=== PATIENT | female | born 1985 | race Caucasian/White ===

== ENCOUNTER → 2018-08-25 | Outpatient (CLI) | payer BC ==
--- NOTE | 2018-08-25 18:47 | REP ---
LEFT BREAST DIAGNOSTIC MAMMOGRAM WITH 3D TOMOSYNTHESIS AND LEFT BREAST ULTRASOUND: HISTORY: Lump 12 o'clock left breast. An area is marked on the skin with a triangular marker. MLO and CC views of the left breast were performed with 3D tomosynthesis. Additional spot compression views are performed at the region of the palpable abnormality. There are no prior studies for comparison. There is no family history of breast cancer. Tyrer-Cuzick lifetime risk of breast cancer is 10.6%. Mild to moderate scattered fibroglandular tissue is seen throughout the left breast. No suspicious mass or architectural distortion is seen. No clustered microcalcifications are seen. Real-time sonographic evaluation of the 12 o'clock region of the left breast is performed. No cystic or solid nodule is seen. IMPRESSION: ACR 1 negative mammogram and ultrasound left breast. No mass or clustered microcalcifications are seen in the left breast. There is no mammographic or sonographic evidence of a mass at the site of the reported palpable abnormality in the region of 12 o'clock. A negative mammogram and ultrasound should not deter biopsy if there is a clinically suspicious palpable mass present. Clinical correlation and followup is recommended. BIRADS 1: BI-RADS/ACR category 1 mammogram. Negative Mammogram. This mammogram was interpreted with the aid of an FDA-approved computer-aided detection system. The patient states she had a clinical breast exam in 07/2018. The patient letter being requested is M2. Electronically Signed by Nilay Sanchez MD 08/26/2018 04:17 P
== END ==
LOC: M RAD 14:55
PROVIDERS: ATTEND Registered Nurse
DX: N60.32 Fibrosclerosis of left breast (principal)
CPT/HCPCS: 76642; 77065; G0279

== ENCOUNTER 2019-08-03 12:05 | Emergency (ER) | payer BC ==
[~2019-08-03] VITALS: Ht 157.5 cm; Wt 70.0 kg
[2019-08-03] MEDS ORDERED: DEPO150I12 IM (12:11)
[2019-08-03] MEDS ORDERED: TIZA2CAP PO (12:11)
[2019-08-03] MEDS ORDERED: ACET1TAB16 PO (12:11)
[2019-08-03] MEDS ORDERED: KETOROLAC 60MG 2ML VIAL IM ONE (13:00)
[2019-08-03] MEDS ORDERED: methocarbamoL 750 MG TAB PO ONE (13:00)
[2019-08-03] MEDS ORDERED: GABAPENTIN 300 MG CAP PO ONE (13:00)
[2019-08-03 13:54] VITALS: BP 137/93
[2019-08-03] MEDS ORDERED: ROBA750T4 PO (14:22)
[2019-08-03] MEDS ORDERED: GABA-843 PO (14:22)
[2019-08-03] MEDS ORDERED: MOBI4TAB PO (14:22)
== END 2019-08-03 14:29 | disposition home or self-care (01) ==
LOC: M ED 12:05
DX: M54.12 Radiculopathy, cervical region (principal); M25.551 Pain in right hip; Z79.899 Other long term (current) drug therapy
CPT/HCPCS: 99283; J1885

== ENCOUNTER 2020-06-03 13:03 | Emergency (ER) | payer BC, SELFPAY ==
[~2020-06-03] VITALS: Ht 157.5 cm; Wt 67.5 kg
[~2020-06-03 13:03] MED LIST: ACET1TAB16 PO; DEPO150I12 IM; GABA-282 PO; MOBI4TAB PO; ROBA750T4 PO; TIZA2CAP PO
[2020-06-03] MEDS ORDERED: ACETAMINOPHEN 325 MG TAB PO ONE (14:40)
[2020-06-03] MEDS ORDERED: NS 1,000 ML IV ONE (14:40)
[2020-06-03 15:06] LABS: BASO % 0.1 % (0.0-1.0); EOS # 0.1 10^3/uL (0.0-0.5); EOS % 1.1 % (0.0-3.0); HEMATOCRIT 44.5 % (36.0-47.0); HEMOGLOBIN 14.7 g/dl (12.0-15.5); LYMPH # 2.8 10^3/uL (1.5-5.0); LYMPH % 22.4 % (24.0-44.0); MEAN CORPUSCULAR VOLUME 87.8 fl (80.0-96.0); MONO # 0.6 10^3/uL (0.0-0.8); MONO % 4.9 % (2.0-8.0); NEUTROPHILS # 8.9 10^3/uL (1.5-8.5); NEUTROPHILS % 71.1 % (36.0-66.0); PLATELET COUNT, AUTOMATED 338 10^3/uL (150-450); RED BLOOD COUNT 5.07 10^6/uL (4.00-5.40); WHITE BLOOD COUNT 12.5 10^3/uL (4.0-10.0)
[2020-06-03 15:35] LABS: ALBUMIN 4.3 GM/DL (3.2-5.2); BILIRUBIN,DIRECT 0.2 MG/DL (0.0-0.2); BILIRUBIN,TOTAL 0.6 MG/DL (0.2-1.0); TOTAL PROTEIN 8.1 GM/DL (6.4-8.2)
[2020-06-03] MEDS ORDERED: ISOVUE-370 76% 100ML VIAL As Ordered ONE (16:40)
--- NOTE | 2020-06-03 17:19 | REP ---
INDICATION: LLQ pain, constipation, fever COMPARISON: None. TECHNIQUE: CT Scan of the abdomen and pelvis was performed with intravenous administration of 100 cc of Isovue 370, without oral contrast. Sagittal and coronal reconstruction images are performed. FINDINGS: Lung bases: Unremarkable. Liver: Normal Gallbladder: Unremarkable. Spleen: Normal. Adrenals: Normal. Pancreas: Normal. Kidneys: Normal. Small and large bowel: Unremarkable. Free fluid: None. Abdominal aorta: No aneurysm or dissection. Adenopathy: None. Appendix: Not inflamed. Osseous structures: There is partial sacralization of L5 on the left. Pelvis: No mass. IMPRESSION: Negative CT abdomen and pelvis. <Electronically signed by Nilay Sanchez > 06/03/20 [id number]
--- NOTE | 2020-06-03 17:20 | REP ---
INDICATION: constipation severe LLQ pain. COMPARISON: None. TECHNIQUE: Supine and erect views of the abdomen, frontal view chest. FINDINGS: There is no evidence of free intraperitoneal air. There is no evidence of bowel obstruction. No dilated bowel loops are seen. Phleboliths are seen in the pelvis. There is partial sacralization of L5 on the left. No infiltrate is seen in either lung. The heart and mediastinum are within normal limits. IMPRESSION: Negative abdominal series. <Electronically signed by Nilay Sanchez > 06/03/20 [id number]
[2020-06-03] MEDS ORDERED: CIPROFLOXACIN 500MG TABLET PO ONE (19:20)
[2020-06-03] MEDS ORDERED: KETOROLAC 30 MG/ML 1ML VIAL IV ONE (19:20)
[2020-06-03] MEDS ORDERED: KETO10TAB PO (19:23)
[2020-06-03] MEDS ORDERED: CIPR-249 PO (19:23)
[2020-06-03 19:49] VITALS: BP 140/79
== END 2020-06-03 19:54 | disposition home or self-care (01) ==
LOC: M ED 13:03
DX: R30.0 Dysuria (principal); R10.2 Pelvic and perineal pain; N39.9 Disorder of urinary system, unspecified; Z79.899 Other long term (current) drug therapy; Z79.3 Long term (current) use of hormonal contraceptives; F12.20 Cannabis dependence, uncomplicated
CPT/HCPCS: 74021; 74177; 80047; 80076; 81001; 83605; 83690; 84702; 85025; 87040; 87086; 96361; 96374; 99284; J1885; Q9967

== ENCOUNTER 2024-12-09 12:36 | Emergency (ER) | payer BC, SELFPAY ==
[~2024-12-09] VITALS: Ht 154.9 cm; Wt 66.0 kg
[~2024-12-09 12:36] MED LIST changes: -ACET1TAB16 PO; +ACET300T48 PO; +CIPR-249 PO; +GABA-1172 PO; -GABA-282 PO; +KETO10TAB PO
[2024-12-09 13:44] LABS: BASO # 0.1 10^3/uL (0.0-0.2); BASO % 0.5 % (0.0-1.0); EOS # 0.1 10^3/uL (0.0-0.5); EOS % 0.6 % (0.0-3.0); LYMPH # 2.8 10^3/uL (1.5-5.0); LYMPH % 19.3 % (24.0-44.0); MONO # 1.0 10^3/uL (0.0-0.8); MONO % 6.7 % (2.0-8.0); NEUTROPHILS # 10.4 10^3/uL (1.5-8.5); NEUTROPHILS % 72.3 % (36.0-66.0); PLATELET COUNT, AUTOMATED 370 10^3/uL (150-450)
[2024-12-09 13:47] LABS: KETONE, URINE AUTO RFX NEGATIVE (NEGATIVE); LEUKOCYTE ESTERASE UR AUTO RFX NEGATIVE (NEGATIVE); MUCUS, URINE RFX SMALL (NEGATIVE); NITRITE, URINE AUTO RFX NEGATIVE (NEGATIVE); RBC, URINE AUTO RFX 2 /HPF (0-3); SQUAM EPITHELIAL CELL UR AURFX 2 /HPF (0-6); WBC, URINE AUTO RFX 0 /HPF (0-3)
[2024-12-09 14:12] LABS: CALCIUM LEVEL 9.3 MG/DL (8.5-10.1); CARBON DIOXIDE LEVEL 26 MMOL/L (20-31); CHLORIDE LEVEL 103 MMOL/L (98-107); CREATININE FOR GFR 0.74 MG/DL (0.55-1.30); GLOMERULAR FILTRATION RATE > 90.0 (>60); POTASSIUM SERUM 3.9 MMOL/L (3.5-5.1); SODIUM LEVEL 139 MMOL/L (136-145)
[2024-12-09 14:41] LABS: HCG, SERUM QUANTITATIVE 116920.3 MIU/ML (<4.2)
[2024-12-09 17:18] VITALS: BP 148/66; TEMP 98.1; O2SAT 98
== END 2024-12-09 17:20 | disposition home or self-care (01) ==
LOC: M ED 12:36
DX: S39.011A Strain of muscle, fascia and tendon of abdomen, initial encounter (principal); X58.XXXA Exposure to other specified factors, initial encounter; Y92.9 Unspecified place or not applicable; Y93.9 Activity, unspecified; Y99.9 Unspecified external cause status; O09.521 Supervision of elderly multigravida, first trimester; Z3A.01 Less than 8 weeks gestation of pregnancy

== ENCOUNTER → 2024-12-31 | Outpatient (REF) | payer BC | LOC: M PLALAB 14:05 | PROVIDERS: ATTEND Advanced Practice Midwife | DX: Z34.80 Encounter for supervision of other normal pregnancy, unspecified trimester (principal) ==

== ENCOUNTER → 2025-01-07 | Outpatient (CLI) | payer BC ==
[2025-01-07 15:30] LABS: PLATELET COUNT, AUTOMATED 358 10^3/uL (150-450)
[2025-01-07 16:29] LABS: HIV 1&2 SCREEN NEGATIVE (NEGATIVE)
[2025-01-07 16:34] LABS: Trichomonas vaginalis (AMP) NOT DETECTED (NEGATIVE)
[2025-01-07 16:57] LABS: GC DNA AMPLIFICATION NEGATIVE (NEGATIVE)
== END ==
LOC: M PLALAB 13:06
PROVIDERS: ATTEND Advanced Practice Midwife
DX: Z34.80 Encounter for supervision of other normal pregnancy, unspecified trimester (principal)

== ENCOUNTER → 2025-01-28 | Outpatient (REF) | payer BC | LOC: M SFHCWAGY 14:56 | PROVIDERS: ATTEND Nurse Practitioner Family | DX: Z34.80 Encounter for supervision of other normal pregnancy, unspecified trimester (principal) ==

== ENCOUNTER → 2025-01-28 | Outpatient (REF) | payer BC | LOC: M PLALAB 14:24 | PROVIDERS: ATTEND Nurse Practitioner Family | DX: Z34.80 Encounter for supervision of other normal pregnancy, unspecified trimester (principal) ==